=== PATIENT | male | born 1955 | race Caucasian/White ===

== ENCOUNTER 2017-01-26 06:23 | Observation (INO) | payer OTHER ==
--- NOTE | ~2017-01-26 | DS ---
Discharge Summary [facility] [address] [facility] [place]. [address] NAME: GLENNA BECK : 51 STATUS : DIS Brionna PAT#: [id number] AGE: 61 ADM/REG DATE : 01/26/17 MR#: [id number] REPORT SERV DATE: 01/28/17 DICTATED BY: THIEN BLANC DATE: 01/27/17 REPORT STATUS : Draft TRANSCRIBED BY: MODL DATE: 01/27/17 ADMISSION DATE: 01/26/2017 DISCHARGE DATE: 01/27/2017 INDICATION FOR HOSPITALIZATION: CKD 3 with nephrotic-range proteinuria. DISCHARGE DIAGNOSES: 1. Status post renal biopsy of left kidney on 01/26/2017. 2. Chronic kidney disease 3 with new-onset nephrotic-range proteinuria of 11.3 g. 3. Hypertension. 4. Type 2 diabetes mellitus. 5. Gout. 6. Ocular migraines. 7. Ichthyosis vulgaris. 8. Aortic root replacement with CABG x1, left atrial appendage ligation and maze procedure in 2012. 9. Remote hysterectomy. 10.Remote appendectomy. 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 12.Hyperlipidemia. HOSPITAL COURSE: Mr. Beck is a 61-year-old male, who was admitted for renal biopsy to further evaluate new-onset nephrotic-range proteinuria of 11.3 g. His creatinine had risen from 1.2 to 1.54 in the office setting. He noted a transient rash at time of onset of his proteinuria. He also has had some intermittent cramping, which was severe and more frequent, of his lower and upper extremities. He states that since discontinuing the aspirin, his ocular migraines were also worse. He underwent renal biopsy of left kidney on 01/26/2017. He had no pain at his biopsy site. No problems with gross hematuria, and his hemoglobin was stable pre and post biopsy, being 15.1 pre biopsy and 15.3 post biopsy with a WBC of 10,000 and a discharge creatinine of 1.31, potassium 4.8, glucose of 116. He was felt stable for release and will follow up with Dr. Frey in two weeks. DISCHARGE MEDICATIONS: Allopurinol 300 mg daily; Norvasc 5 mg twice daily; vitamin C 250 mg daily; vitamin D3, 250 mg daily; Lasix 40 mg daily; hydrochlorothiazide 12.5 mg daily; lisinopril 40 mg daily; Lopressor 75 mg twice daily; Pravachol 40 mg q.h.s.; metformin 500 mg with breakfast and supper; aspirin 325 mg, resume on Thursday; Tylenol 650 mg one to two tablets daily p.r.n.; Eucerin cream applied twice daily; and [id number] magnesium tablet daily. FOLLOWUP: In one to two weeks with Dr. Frey. DIET: Will be 2 g sodium, 2000 calorie ADA diet. ACTIVITY: The patient not to lift more than 10 pounds. He is to avoid housework, yardwork, Discharge Summary [facility] [place] [id number] [place]. [address] NAME: GLENNA BECK : 51 STATUS : DIS Brionna PAT#: [id number] AGE: 61 ADM/REG DATE : 01/26/17 MR#: [id number] REPORT SERV DATE: 01/28/17 DICTATED BY: THIEN BLANC DATE: 01/27/17 REPORT STATUS : Draft TRANSCRIBED BY: ROSETTE DATE: 01/27/17 or any activity with stooping, bending, or twisting activity for five to seven days. He is to contact the office for dizziness/lightheadedness, temp greater than 100.4 degrees, gross hematuria, or pain at renal biopsy site unrelieved by Tylenol. Activity limitations will be in effect for only five to seven days. DICTATED BY: Wanda Chen/ROSETTE Thien Blanc M.D. / [id number] CC: Wanda Matias Samuel J
[~2017-01-26 06:23] MED LIST: AMOXIL500 MG PO; ASA5GR PO; ASABAYER PO; GLUCPH PO; HYDROCHLOROT12.5 MG PO; L40 PO; LEVATOL20 MG OR; LEVATOL20 MG PO; LISINOPRIL40 MG PO; LOP25 PO; LOP50 PO; NORV5 PO; OTC MAGNESIUM PO; PRAVACHOL40 MG PO; PRIN20 PO; TAMBOCOR PO; TIAZA1 PO; TYLENOL 8 HR650 MG PO; VICODINTAB PO; VITAMIN C100 MG PO; VITAMIN D31000 UNIT PO; Z300 PO; ZESTRIL40 MG PO; ZYVOXPO PO; [UNRECOGNIZED DRUG - OTHER] TOP
[2017-01-26 07:09] LABS: MEAN CORPUS HGB CONC 34.4 g/dL (32.0-36.0); MEAN CORPUSCULAR HEMOGLOB 31.6 pg (26.0-34.0); MEAN CORPUSCULAR VOLUME 91.8 fL (80-100); MEAN PLATELET VOLUME 8.8 fL (9.2-13.0); RBC DISTRIBUTION WIDTH 14.1 % (12.0-16.0); WHITE BLOOD CELLS 12.5 10/3/uL (4.5-10.5)
[2017-01-26 07:13] LABS: HEMATOCRIT 43.9 % (40.0-51.0); HEMOGLOBIN 15.1 g/dL (13.6-17.8); MANUAL DIFF YES %; PLATELET COUNT 289 10/3/uL (150-400); RED CELL COUNT 4.78 10/6/uL (4.7-6.1)
[2017-01-26 07:15] LABS: INTERNATIONAL NORMAL RATI 0.9 UNITS (-); PARTIAL THROMBO TIME 32.3 SEC (22.5-37.2); PROTIME (NOT ORD) 12.4 SEC (12.0-14.5)
[2017-01-26 07:52] LABS: BAND NEUTROPHILS 2 %; EOSINOPHILS 3 %; EOSINOPHILS ABSOLUTE (CALC) 0.38 10/3/uL (0.0-0.53); IMMATURE GRANS ABSOLUTE (CALC) 0.13 10/3/uL (0.0-0.11); LYMPHOCYTES 14 %; LYMPHOCYTES ABSOLUTE (CALC) 1.75 10/3/uL (0.67-4.30); METAMYELOCYTES 1 %; MONOCYTES 6 %; MONOCYTES ABSOLUTE (CALC) 0.75 10/3/uL (0.21-1.20); PLATELET ESTIMATE ADQ (ADEQUATE); SEGMENTED NEUTROPHIL (0) 74 %; TOTAL NUCLEATED CELLS 100
[2017-01-27 07:16] LABS: BASOPHILS 0.2 %; BASOPHILS ABSOLUTE 0.02 10/3/uL (0.0-0.16); EOSINOPHILS 1.6 %; EOSINOPHILS ABSOLUTE 0.16 10/3/uL (0.0-0.53); HEMATOCRIT 46.2 % (40.0-51.0); HEMOGLOBIN 15.3 g/dL (13.6-17.8); IMMATURE GRANULOCYTES 0.3 %; IMMATURE GRANULOCYTES ABSOLUTE 0.03 10/3/uL (0.0-0.11); LYMPHOCYTES 17.8 %; LYMPHOCYTES ABSOLUTE 1.84 10/3/uL (0.67-4.30); MEAN CORPUS HGB CONC 33.1 g/dL (32.0-36.0); MEAN CORPUSCULAR HEMOGLOB 30.9 pg (26.0-34.0); MEAN CORPUSCULAR VOLUME 93.3 fL (80-100); MEAN PLATELET VOLUME 8.4 fL (9.2-13.0); MONOCYTES 10.2 %; MONOCYTES ABSOLUTE 1.05 10/3/uL (0.21-1.20); NEUTROPHILS 69.9 %; NEUTROPHILS ABSOLUTE 7.22 10/3/uL (2.02-8.40); PLATELET COUNT 239 10/3/uL (150-400); RBC DISTRIBUTION WIDTH 13.8 % (12.0-16.0); RED CELL COUNT 4.95 10/6/uL (4.7-6.1); WHITE BLOOD CELLS 10.3 10/3/uL (4.5-10.5)
[2017-01-27 07:18] LABS: ALBUMIN 1.6 G/DL (3.5-5.0); BUN (BLOOD UREA NITROGEN) 27 MG/DL (6-23); CALCIUM, SERUM 9.1 MG/DL (8.5-10.4); CHLORIDE, SERUM 105 MMOL/L (96-112); CO2 (CARBON DIOXIDE) 26 MMOL/L (24-34); CREATININE 1.31 MG/DL (0.70-1.30); GFR AFRICAN AMERICAN 67 ML/MIN (>=60); GFR NON AFRICAN AMERICAN 58 ML/MIN (>=60); GLUCOSE, SERUM 116 MG/DL (60-99); MANUAL DIFF NO %; PHOSPHORUS, SERUM 3.4 MG/DL (2.5-4.5); POTASSIUM, SERUM 4.8 MMOL/L (3.5-5.3); SODIUM, SERUM 139 MMOL/L (135-148)
[2017-03-20] MEDS ORDERED: SPIRO25 PO (00:43)
[2017-03-20] MEDS ORDERED: LOP25 PO (00:44)
[2017-03-20] MEDS ORDERED: Z300 PO (00:44)
[2017-03-20] MEDS ORDERED: HCTZ12.5 PO (00:44)
[2017-03-20] MEDS ORDERED: LISINOPRIL40 MG PO (00:45)
[2017-03-20] MEDS ORDERED: PRAVACHOL40 MG PO (00:45)
[2017-03-20] MEDS ORDERED: GLUCPH PO (00:45)
[2017-03-20] MEDS ORDERED: ASA5GR PO (00:47)
[2017-03-20] MEDS ORDERED: MAG OXIDE250 MG PO (00:47)
[2017-03-20] MEDS ORDERED: VITC500 PO (00:47)
[2017-03-20] MEDS ORDERED: VITD PO (00:48)
[2017-03-20] MEDS ORDERED: CITRACAL PO (00:48)
[2017-03-20] MEDS ORDERED: L40 PO (00:49)
[2017-03-20] MEDS ORDERED: COLCRYS0.6 MG PO (00:50)
[2017-03-20] MEDS ORDERED: XARELTO20 MG PO (07:44)
[2017-04-01] MEDS ORDERED: Z300 PO (03:43)
[2017-04-01] MEDS ORDERED: ASAB PO (03:44)
[2017-04-01] MEDS ORDERED: CITRACAL PO (03:44)
[2017-04-01] MEDS ORDERED: VITC500 PO (03:44)
[2017-04-01] MEDS ORDERED: COLCRYS0.6 MG PO (03:44)
[2017-04-01] MEDS ORDERED: VITD PO (03:45)
[2017-04-01] MEDS ORDERED: L40 PO (03:45)
[2017-04-01] MEDS ORDERED: PRIN20 PO (03:45)
[2017-04-01] MEDS ORDERED: LISINOPRIL40 MG PO (03:45)
[2017-04-01] MEDS ORDERED: XARELTO20 MG PO (03:46)
[2017-04-01] MEDS ORDERED: MAG OXIDE250 MG PO (03:46)
[2017-04-01] MEDS ORDERED: LOP50 PO (03:46)
[2017-04-01] MEDS ORDERED: PRAVACHOL40 MG PO (03:46)
[2017-04-01] MEDS ORDERED: GLUCPH PO (03:46)
[2017-04-01] MEDS ORDERED: SPIRO25 PO (03:47)
[2017-04-02] MEDS ORDERED: LOP25 PO (13:40)
[2017-04-02] MEDS ORDERED: APRES25 PO (13:43)
[2017-04-02] MEDS ORDERED: BETAPACE80 PO (13:46)
== END 2017-01-27 09:44 | disposition home or self-care (01) ==
LOC: IMGHOLD 06:23 → RADHOLD 06:28 → SSU1 15:39 → SSU2 01-27 09:28 → SSU1 01-27 09:32
PROVIDERS: Internal Medicine Nephrology
PROC: 0TB13ZX Excision of Left Kidney, Percutaneous Approach, Diagnostic (ICD-10-PCS; principal; 2017-01-26)
DX: I12.9 Hypertensive chronic kidney disease with stage 1 through stage 4 chronic kidney disease, or unspecified chronic kidney disease (principal); E11.22 Type 2 diabetes mellitus with diabetic chronic kidney disease; N18.3 Chronic kidney disease, stage 3 (moderate); M10.9 Gout, unspecified; G43.809 Other migraine, not intractable, without status migrainosus; Z83.3 Family history of diabetes mellitus; Z82.5 Family history of asthma and other chronic lower respiratory diseases; Z82.49 Family history of ischemic heart disease and other diseases of the circulatory system; Z87.891 Personal history of nicotine dependence; Z79.52 Long term (current) use of systemic steroids; Z79.84 Long term (current) use of oral hypoglycemic drugs; Z79.899 Other long term (current) drug therapy; Z90.49 Acquired absence of other specified parts of digestive tract; Z95.1 Presence of aortocoronary bypass graft
CPT/HCPCS: 50200; 77012; 80069; 82962; 83735; 85025; 85610; 85730; 88305; A9270-GY; G0378; J2250; J3010